=== PATIENT | female | born 1970 | race Caucasian/White ===

== ENCOUNTER 2023-02-25 09:20 | Day surgery (SDC) | payer OTHER ==
[~2023-02-25] VITALS: Ht 157.5 cm; Wt 86.6 kg
[2023-02-25] MEDS ORDERED: fentaNYL citrate 0.05 MG/ML VIAL ONE (11:04)
[2023-02-25] MEDS ORDERED: MIDAZOLAM 2 MG/2 ML VIAL ONE (11:04)
[2023-02-25] MEDS ORDERED: SIMETHICONE 40 MG/0.6 ML ONE (11:05)
[2023-02-25] MEDS ORDERED: MIDAZOLAM 2 MG/2 ML VIAL IVP ONE (12:55)
== END 2023-02-25 12:40 | disposition home or self-care (01) ==
LOC: MDS 09:20 → MMU 09:22 → MDS 12:40
PROVIDERS: ATTEND Internal Medicine Gastroenterology
DX: K21.9 Gastro-esophageal reflux disease without esophagitis (principal); K22.70 Barrett's esophagus without dysplasia; E78.5 Hyperlipidemia, unspecified; Z85.3 Personal history of malignant neoplasm of breast; K44.9 Diaphragmatic hernia without obstruction or gangrene; R14.0 Abdominal distension (gaseous); Z98.51 Tubal ligation status; Z79.899 Other long term (current) drug therapy
CPT/HCPCS: 43235; J2250; J3010

== ENCOUNTER 2024-04-28 08:00 | Day surgery (SDC) | payer OTHER ==
[~2024-04-28] VITALS: Ht 152.4 cm; Wt 89.8 kg
[2024-04-28] MEDS ORDERED: fentaNYL citrate 0.05 MG/ML VIAL ONE (09:32)
[2024-04-28] MEDS ORDERED: LIDOCAINE 2% 100 MG/5 ML UJET TP ONE (09:32)
[2024-04-28] MEDS: fentaNYL citrate 0.05 MG/ML VIAL IVP ONE (09:38)
== END 2024-04-28 11:20 | disposition home or self-care (01) ==
LOC: MDS 08:00 → MMU 08:07 → MDS 11:20
PROVIDERS: ATTEND Internal Medicine Gastroenterology
DX: Z12.11 Encounter for screening for malignant neoplasm of colon (principal); K64.4 Residual hemorrhoidal skin tags; K21.9 Gastro-esophageal reflux disease without esophagitis; E78.5 Hyperlipidemia, unspecified; Z90.710 Acquired absence of both cervix and uterus; Z98.51 Tubal ligation status; Z88.8 Allergy status to other drugs, medicaments and biological substances; Z98.890 Other specified postprocedural states
CPT/HCPCS: 45378; J3010